=== PATIENT | female | born 1980 | race Caucasian/White ===

== ENCOUNTER 2024-06-08 00:32 | Emergency (ER) | payer OTHER, SELFPAY ==
[2024-06-08 00:40] VITALS: BP 154/75
[2024-06-08 01:00] VITALS: BP 127/81
[2024-06-08] MEDS: NSS 1000 IV (01:35)
[2024-06-08 02:00] VITALS: BP 121/76
[2024-06-08 02:06] LABS: ALT (SGPT) 16 U/L (0-35); AST (SGOT) 22 U/L (14-36); Albumin 4.3 g/dl (3.5-5.0); Alkaline Phosphatase 68 U/L (38-126); Blood Urea Nitrogen 16 mg/dl (7-17); Calcium 9.8 mg/dl (8.4-10.2); Carbon Dioxide 24 mmol/L (22-30); Chloride 104 mmol/L (98-107); Glucose 101 mg/dl (70-99); Potassium 4.1 mmol/L (3.5-5.1); Sodium 144 mmol/L (135-145); Total Bilirubin 0.4 mg/dl (0.2-1.3); Total Protein 7.1 g/dl (6.3-8.2); eGFR > 60.00
[2024-06-08 02:07] LABS: % Basophils 0.8 % (0-2); % Eosinophils 1.3 % (0-6); % Immature Granulocytes 0.4 % (0-0.5); % Lymphocytes 24.6 % (20.5-51.1); % Monocytes 8.7 % (1.7-9.3); % Neutrophils 64.2 % (42.2-75.2); Absolute Basophils 0.1 10^3/uL (0-0.2); Absolute Eosinophils 0.1 10^3/uL (0-0.7); Absolute Lymphocytes 1.9 10^3/uL (1.2-3.4); Absolute Monocytes 0.7 10^3/uL (0.1-0.6); Absolute Neutrophils 4.9 10^3/uL (1.4-6.5); Hematocrit 35.1 % (37.0-47.0); Hemoglobin 11.9 g/dL (12.0-16.0); Mean Corp Hgb Conc. 33.9 g/dL (33.0-37.0); Mean Corpuscular Volume 85.6 fL (81.0-99.0); Nucleated Red Blood Cells % 0 %; Platelet Count 336 10^3/uL (130-400); Red Cell Dist. Width 13.6 % (11.5-14.5); White Blood Cell Count 7.7 10^3/uL (4.8-10.8)
--- NOTE | 2024-06-08 02:16 | ED.GENMED ---
History of Present Illness
General
Chief Complaint: Heart Rate Problem
Time Seen by Provider: 06/08/24 00:34
History of Present Illness
History of Present Illness:
43-year-old female with a history of POTS presenting for concern of tachycardia. Patient reports she was in bed, went up to go to the bathroom and when she got into her bed felt that her heart was racing. She checked her heart rate and it was in
the 170s. Notes that this happened in the past, however was concerned because it was not going down. She reports she currently has a Holter monitor in place, is being evaluated by [facility] for her symptoms. Also notes that she has an
appointment with a POTS specialist in a week at [place]. She is currently not on any medications. Reports that her heart rate has improved since arrival to the hospital. Denies any underlying anxiety. Denies any history of blood clots, recent
travel, recent surgery, exogenous estrogen. Denies chest pain or difficulty breathing. Denies abdominal pain or GI symptoms. Reports that she has been having this issue for the past months, however was diagnosed with POTS syndrome about 15 years
ago. Denies additional medical complaints
Phy Exam
Physical Exam
Physical Exam:
General: Well-appearing, no clinical signs of dehydration, nontoxic and in no acute distress
HEENT: protecting airway
Neck: appears supple
CV: Tachycardic, regular rhythm, no evidence of cyanosis
Resp: No accessory muscle use, no increased work of breathing, lungs clear to auscultation bilaterally
Abd: Soft and non-distended, no tenderness to palpation, normal bowel sounds
Extremities: No deformities, no swelling, no erythema
Neuro: alert, no focal neurologic deficit
: deferred
Rectal: deferred
Psych: Normal affect
Skin: Intact
Course
Orders/Labs/Results
Orders:
Orders
06/08/24 01:17
0.9% Sodium Chloride 1000 ml [Nss] 1,000 ml IV BOLUS
06/08/24 01:34
Complete Blood Count/With Diff Urgent
Comprehensive Metabolic Panel Urgent
TSH Reflex To Free T4 Urgent
Comment: ADD ON
Troponin I Urgent
06/08/24 01:45
Add On- LAB Urgent
Tests Added?: TSH w/ reflex to T4
06/08/24 02:32
Electrocardiogram (*1) Urgent
Reason for Study: Tachycardia
EKG- Treatment ONCE
Abnormal Lab Results
06/08/24
01:34
RBC 4.10 L 10^6/uL
(4.20-5.40)
Hgb 11.9 L g/dL
(12.0-16.0)
Hct 35.1 L %
(37.0-47.0)
Absolute Monos (auto) 0.7 H 10^3/uL
(0.1-0.6)
Glucose 101 H mg/dl
(70-99)
06/08/24 01:34
06/08/24 01:34
Vital Signs
Initial and Last Documented VS:
Initial Vital Signs
Temp Pulse Resp BP Pulse Ox
98.3 F 116 14 154/75 99
06/08/24 00:40 06/08/24 00:40 06/08/24 00:40 06/08/24 00:40 06/08/24 00:40
Last Documented Vital Signs
Temp Pulse Resp BP Pulse Ox
98.3 F 83 15 113/67 96
06/08/24 00:40 06/08/24 04:15 06/08/24 04:15 06/08/24 04:00 06/08/24 04:15
MDM/Problems Addressed
MDM/Problems Addressed:
43-year-old female with history of POTS presenting for elevated heart rate. Vital signs on arrival significant for mild tachycardia.
On exam patient is well-appearing, no acute distress or discomfort. Patient's heart rate resting is in the low 100s. Suspect that her tachycardia is secondary to her known diagnosis of POTS. Lower suspicion for PE in the absence of any rest
symptoms or additional PE risk factors. Patient reports she was recently evaluated for PE in May at a hospital in [place], had a CT of her chest which was negative for acute pathology. Patient without any chest pain, suspicion for ACS or
severe cardiac pathology. Patient is already plugged in the system, currently has a Holter monitor in place, and is post have a stress test later this week. Also rescheduled follow-up with a POTS specialist in 2 weeks. At this time will screen
with laboratory analysis fluids. Will also check TSH and continue to close monitor. Will obtain EKG
03:30 - EKG is sinus rhythm without acute ischemic abnormality, heart rate is controlled. After obtaining EKG, heart rate did increase while patient was at rest, however resolved without intervention.
04:40 - TSH within normal limits. Heart rate remains controlled. At this time feel patient is stable for discharge, however with close interval follow-up. Patient is already plugged in with cardiology, has a stress test next Wednesday and Holter
monitor is to be removed in 3 days. She also had POTS specialist in 2 weeks. Patient expresses concern with periods of elevated heart rate at home. Will prescribe metoprolol for an as needed basis, advised to use of heart rate is greater than 120
or patient is symptomatic. Strict return precautions communicated and patient verbalized understanding
*EKG
Interpreted by ED Provider?: Yes
EKG Intrepretation Date: 06/08/24
EKG Intrepretation Time: 03:44
Interpretation: normal
Comparison EKG: no comparison EKG present
Heart Rate: 90
Rate: normal
Rhythm: sinus
[place]: normal axis
Interval: normal interval
QRS Pattern: normal QRS
Ischemia: no ischemia
*Critical Care Note
Total Time (30-74mins, 75-104mins- exclusive of procedures): Not Applicable
ED Attending Note
-
Portions of this chart may have been created with voice recognition software.� Occasional wrong word or��sound alike� substitutions may have occurred due to the inherent limitations of voice recognition software.
Discharge Plan
Interventions
Interventions:
*Risk Screen - Suicide Last Done: 06/08/24 00:40
*General Assessment Last Done: 06/08/24 01:30
*ED COVID-19 Vaccine History Last Done: 06/08/24 01:30
ED- Cardiac Assessment Last Done: 06/08/24 01:30
ED- Pulmonary Assessment Last Done: 06/08/24 01:30
Discharge Date and Time
Print Language: [place] CITIZEN
[2024-06-08 02:36] LABS: Troponin I < 0.012 ng/ml
[2024-06-08 03:00] VITALS: BP 114/75
[2024-06-08 04:00] VITALS: BP 113/67
[2024-06-08 04:20] LABS: TSH Reflex To Free T4 1.63 uIU/ml (0.47-4.68)
== END 2024-06-08 05:23 | disposition home or self-care (01) ==
LOC: EMR 00:32
PROVIDERS: EMERGENCY PHYSICIAN Student in an Organized Health Care Education/Training Program; FAMILY PHYSICIAN Family Medicine
DX: R00.0 Tachycardia, unspecified (principal); G90.A Postural orthostatic tachycardia syndrome [POTS]
CPT/HCPCS: 99283; 80053; 84443; 84484; 85025; 93005

== ENCOUNTER 2024-06-30 16:15 | Emergency (ER) | payer OTHER, SELFPAY ==
[2024-06-30 16:16] VITALS: BP 129/89
[2024-06-30 16:57] LABS: ALT (SGPT) 18 U/L (0-35); AST (SGOT) 21 U/L (14-36); Albumin 4.9 g/dl (3.5-5.0); Alkaline Phosphatase 65 U/L (38-126); Blood Urea Nitrogen 12 mg/dl (7-17); Calcium 10.3 mg/dl (8.4-10.2); Carbon Dioxide 27 mmol/L (22-30); Chloride 103 mmol/L (98-107); Glucose 108 mg/dl (70-99); Potassium 3.8 mmol/L (3.5-5.1); Sodium 141 mmol/L (135-145); Total Bilirubin 0.5 mg/dl (0.2-1.3); Total Protein 7.9 g/dl (6.3-8.2); eGFR > 60.00
[2024-06-30 17:08] LABS: HCG, Serum Qualitative Screen Negative
[2024-06-30 17:51] LABS: % Basophils 0.6 % (0-2); % Eosinophils 0.3 % (0-6); % Immature Granulocytes 0.4 % (0-0.5); % Lymphocytes 23.8 % (20.5-51.1); % Monocytes 8.8 % (1.7-9.3); % Neutrophils 66.1 % (42.2-75.2); Absolute Lymphocytes 1.7 10^3/uL (1.2-3.4); Absolute Monocytes 0.6 10^3/uL (0.1-0.6); Absolute Neutrophils 4.6 10^3/uL (1.4-6.5); Hematocrit 40.4 % (37.0-47.0); Hemoglobin 13.7 g/dL (12.0-16.0); Mean Corp Hgb Conc. 33.9 g/dL (33.0-37.0); Mean Corpuscular Hgb 29.1 pg (27.0-31.0); Mean Platelet Volume 9.6 fL (7.4-10.4); Nucleated Red Blood Cells % 0 %; Platelet Count 380 10^3/uL (130-400); Red Cell Dist. Width 13.3 % (11.5-14.5); White Blood Cell Count 6.9 10^3/uL (4.8-10.8)
--- NOTE | 2024-06-30 17:54 | EDRN ---
Dr. Coe in room w/pt at this time.
[2024-06-30 18:01] VITALS: BMI 21.5
--- NOTE | 2024-06-30 18:01 | ED.GENMED ---
History of Present Illness
General
Chief Complaint: Dizziness
Time Seen by Provider: 06/30/24 17:41
History of Present Illness
History of Present Illness:
Patient is a 43-year-old woman with history of POTS presenting to the emergency department with episode of dizziness. Patient states that she met with her POTS specialist and had a drive home. She states that she felt fine during the drive home.
She got home was standing around for about 10 minutes and then she looked up to grab something from the top shelf. She had sudden onset of dizziness. She states that she then sat and lay down. The symptoms did slowly get better however when she
moved her neck the symptoms would reappear. She did not notice her heart rate skyrocketed to the 150s. She is unsure if she was anxious. This lasted about 5 to 10 minutes. outreach associate were called as the symptoms were not improving. Upon their arrival
after they moved her to the stretcher she states that symptoms mostly resolved. She did have 1 episode of dizziness when she looked up to the ceiling in the ambulance however since then that has resolved. She has no history of vertigo. She does
state that her ears have been full and she has been having occasional tinnitus. Her children at home have been sick but patient herself has had no URI symptoms. No numbness tingling. No weakness. No headache. No blurry vision.
Phy Exam
Physical Exam
Physical Exam:
GENERAL: in no acute distress
HEENT: normocephalic, extraocular movements intact, moist oral mucosa, middle ear effusions bilaterally with no associated erythema or bulging of the TM
NECK: normal inspection
RESPIRATORY: no respiratory distress, clear to auscultation bilaterally
CARDIOVASCULAR: regular rate and rhythm
ABDOMEN/: soft, non-distended, non-tender to palpation, no rebound or guarding
EXTREMITIES: non-tender, no edema/swelling
NEUROLOGIC: awake and alert, moves all extremities, equal strength in upper and lower extremities, no sensory deficits, normal [id number]
SKIN: warm
Course
Orders/Labs/Results
Orders:
Orders
06/30/24 16:19
Electrocardiogram (*1) Urgent
Reason for Study: Vertigo / Dizzy
06/30/24 16:20
EKG- Treatment ONCE
Test Result ONCE
06/30/24 16:27
Complete Blood Count/With Diff Urgent
Comprehensive Metabolic Panel Urgent
HCG, Serum Qualitative Screen Urgent
Abnormal Lab Results
06/30/24
16:27
Glucose 108 H mg/dl
(70-99)
Calcium 10.3 H mg/dl
(8.4-10.2)
06/30/24 16:27
06/30/24 16:27
Vital Signs
Initial and Last Documented VS:
Initial Vital Signs
Temp Pulse Resp BP Pulse Ox
98.5 F 104 18 129/89 100
06/30/24 16:16 06/30/24 16:16 06/30/24 16:16 06/30/24 16:16 06/30/24 16:16
Last Documented Vital Signs
Temp Pulse Resp BP Pulse Ox
98.5 F 104 18 129/89 100
06/30/24 16:16 06/30/24 16:16 06/30/24 16:16 06/30/24 16:16 06/30/24 16:16
MDM/Problems Addressed
Differential Diagnosis Includes:
Patient is a 43-year-old woman history of POTS presenting to the emergency department episode dizziness that is now resolved. Vitals here initially were notable for heart rate of 104 though during my evaluation her heart rate is in the 80s. Exam
does show middle ear effusions bilaterally and a normal neuroexam. Given the sudden onset of dizziness that was positional likely BPPV however she does have ear effusions which could be contributing to some of the symptoms as well as the tinnitus.
History and exam not consistent with central cause of vertigo. I did educate the patient on how to perform the Lupe maneuver. We did discuss starting meclizine however will hold off at this time. EKG per my interpretation normal sinus rhythm.
Blood work obtained prior to evaluation is unremarkable. test negative. will l discharge at this time.
*Critical Care Note
Total Time (30-74mins, 75-104mins- exclusive of procedures): Not Applicable
ED Attending Note
-
Portions of this chart may have been created with voice recognition software.� Occasional wrong word or��sound alike� substitutions may have occurred due to the inherent limitations of voice recognition software.
Discharge Plan
Departure
Patient Disposition: Home (Routine Discharge)
Date of Disposition: 06/30/24
Time of Disposition: 18:05
Patient with high blood pressure during this ER visit?: No
Discharge Problem:
Vertigo
Instructions: Vertigo (a Type of Dizziness) (DC)
Prescriptions:
No Action
metoprolol tartrate 25 mg tablet
25 mg PO DAILY 30 Days Qty: 30 0RF
Referrals:
Charlette Ordoñez DO [Family Provider] -
Activity Restrictions/Additional Instructions:
You were seen in the Emergency Department today for vertigo. While you were here we performed blood work, which was reassuring. You can try the Lupe maneuver.
We would like for you to follow up with your primary care physician for further evaluation. If you experience fever, worsening of your symptoms, or develop any other new or concerning symptoms, please return to the Emergency Department immediately.
Please see the attached sheet for additional information.
Interventions
Interventions:
*Risk Screen - Suicide Last Done: 06/30/24 18:02
*General Assessment Last Done: 06/30/24 18:02
*Neglect/Abuse Screening Last Done: 06/30/24 18:02
ED- Fall Risk Assessment Last Done: 06/30/24 18:03
*ED COVID-19 Vaccine History Last Done: 06/30/24 18:02
ED- Neurological Assessment Last Done: 06/30/24 18:03
ED Swallowing Screen Last Done: 06/30/24 18:03
Discharge Date and Time
Print Language: KOREAN
[2024-06-30 18:05] VITALS: BP 125/84
== END 2024-06-30 18:20 | disposition home or self-care (01) ==
LOC: EMR 16:15
PROVIDERS: Emergency Medicine; EMERGENCY PHYSICIAN Student in an Organized Health Care Education/Training Program; FAMILY PHYSICIAN Family Medicine
DX: R42 Dizziness and giddiness (principal); G90.A Postural orthostatic tachycardia syndrome [POTS]
CPT/HCPCS: 99283; 80053; 84703; 85025; 93005

== ENCOUNTER 2024-07-31 04:42 | Emergency (ER) | payer OTHER, SELFPAY ==
[2024-07-31] VITALS (8 sets, daily range): BP systolic 87–134; BP diastolic 71–84; BMI 21.5
[2024-07-31 05:27] LABS: % Basophils 0.5 % (0-2); % Eosinophils 1.7 % (0-6); % Immature Granulocytes 0.3 % (0-0.5); % Lymphocytes 35.3 % (20.5-51.1); % Monocytes 10.3 % (1.7-9.3); % Neutrophils 51.9 % (42.2-75.2); Absolute Eosinophils 0.1 10^3/uL (0-0.7); Absolute Lymphocytes 2.1 10^3/uL (1.2-3.4); Absolute Monocytes 0.6 10^3/uL (0.1-0.6); Absolute Neutrophils 3.1 10^3/uL (1.4-6.5); Hematocrit 36.2 % (37.0-47.0); Hemoglobin 12.1 g/dL (12.0-16.0); Mean Corp Hgb Conc. 33.4 g/dL (33.0-37.0); Mean Corpuscular Hgb 28.1 pg (27.0-31.0); Mean Platelet Volume 8.9 fL (7.4-10.4); Nucleated Red Blood Cells % 0 %; Platelet Count 316 10^3/uL (130-400); Red Blood Cell Count 4.31 10^6/uL (4.20-5.40); Red Cell Dist. Width 13.2 % (11.5-14.5)
[2024-07-31 05:30] LABS: HCG, Serum Qualitative Screen Negative
[2024-07-31 05:33] LABS: ALT (SGPT) 17 U/L (0-35); AST (SGOT) 19 U/L (14-36); Albumin 4.6 g/dl (3.5-5.0); Alkaline Phosphatase 57 U/L (38-126); Blood Urea Nitrogen 12 mg/dl (7-17); Carbon Dioxide 24 mmol/L (22-30); Chloride 103 mmol/L (98-107); Estimated Creatinine Clearance 86 ml/min; Glucose 95 mg/dl (70-99); Potassium 3.8 mmol/L (3.5-5.1); Sodium 139 mmol/L (135-145); Total Bilirubin 0.4 mg/dl (0.2-1.3); Total Protein 7.4 g/dl (6.3-8.2); eGFR > 60.00
[2024-07-31 05:59] LABS: Troponin I < 0.012 ng/ml
--- NOTE | 2024-07-31 06:10 | EDRN ---
Addendum entered by Netta Louis RN 07/31/24 06:39:
Rhythm strip from 0610 event from central monitoring printed and placed in pt.'s chart.
Original Note:
At approximately 0610 AM, pt.'s HR increased to 141 for less than a minute, sinus tach, then HR steadily decreased until HR in NSR w/ rate of 98.
--- NOTE | 2024-07-31 06:41 | ED.GENMED ---
History of Present Illness
<Julianna Howell MD, Resident - Last Filed: 07/31/24 08:48>
General
Chief Complaint: Heart Rate Problem
Source: patient
Exam Limitations: none
Time Seen by Provider: 07/31/24 06:15
Travel History
Have you traveled to any high risk areas for coronavirus over the past 14 days?: No
Have you had any contact with someone who has COVID-19?: No
Do you have any symptoms of coronavirus? Fever > 100 degrees, chills, cough, shortness of breath, sore throat, loss of taste or smell, muscle aches, or headache?: No
History of Present Illness
History of Present Illness:
43-year-old female with past medical history significant for subclinical hypothyroidism, migraines, POTS, presents to the hospital after awakening from sleep at about 4 AM with palpitations, her heart rate went up to high 190s making her feel mildly
lightheaded and she called EMS. Upon EMS arrival her heart rate was in 150s. She lost over 10 pounds of weight over the last 2 weeks, her appetite has been on and off, her soft palate tongue and throat are swollen, and was wondering if her B panel
is low, and has iron deficiency. She has difficulties swallowing both solids and liquids, and was diagnosed with subclinical hypothyroidism. She is also on iron supplements, which makes her stools look black and occasionally constipated. With
this episode she denies having headaches, blurring of vision, chest pain, shortness of breath on exertion, swelling of feet, orthopnea, PND, change in bladder habits.
She denies any fevers, chills, recent history of travel or exposure to sick contacts.
Review of Systems
<Julianna Howell MD, Resident - Last Filed: 07/31/24 08:48>
Review of Systems
Constitutional: Reports weight loss, fatigue and sleep disturbance
EENT: Reports mouth swelling
Respiratory: Reports no symptoms
Cardiac: Reports palpitations and other (Lightheadedness)
ABD/GI: Reports no symptoms
: Reports no symptoms
Musculoskeletal: Reports no symptoms; Denies muscle stiffness, neck pain or back pain
Skin: Reports no symptoms
Neurological: Reports dizzy
Endocrine: Denies no symptoms
Hematologic/Lymphatic: Denies no symptoms
Psychiatric: Reports anxiety
Phy Exam
<Julianna Howell MD, Resident - Last Filed: 07/31/24 08:48>
General Physical Exam
General Presentation: well appearing and no apparent distress
General Skin: warm
General Habitus: normal
General Mental: alert
General Hydration: appears well hydrated
ENT Exam
ENT Exam: EOMI, pharynx normal and neck supple
Eye Exam
Eye Exam: PERRL and EOMI
Cardiovascular Exam
Cardiovascular Exam: regular rate/rhythm, no edema, no gallop, no JVD, no murmur, normal peripheral pulses and tachycardia
Heart Sounds: normal
RONALDO Score
Is patient's age greater than or equal to 65 years: No
Does patient have 3 or more CAD risk factors?: No
Does patient have known CAD: No
Has patient used ASA in past seven days?: No
Has patient had severe angina in past 24 hrs?: No
Are patient's cardiac markers elevated?: No
Are there ST changes greater 0.05mm?: No
Result score?: 0
Pulmonary Exam
Pulmonary Exam: lungs clear, no respiratory distress, no rales, no crackles and no rhonchi
Gastrointestinal Exam
Gastrointestinal Exam: normal bowel sounds, non tender, soft, no pulsatile mass and non distended
Neurological Exam
Neurological Exam: alert, no motor deficits and no sensory deficits
Musculoskeletal Exam
Musculoskeletal Exam: edema
Skin Exam
Skin Exam: normal color
Psychiatric Exam
Psychiatric Exam: normal mood/affect
<Woody Rangel, DO - Last Filed: 07/31/24 13:46>
RONALDO Score
Result score?: 0
Course
<Julianna Howell MD, Resident - Last Filed: 07/31/24 08:48>
Orders/Labs/Results
Orders:
Orders
07/31/24 04:47
Electrocardiogram (*1) Urgent
Reason for Study: Chest Pain
Cardiac Monitoring- Treatment ONCE
EKG- Treatment ONCE
IV Insert/Care/Rem.- Treatment PRN
O2 Therapy [RESP] Urgent
Titrate/Wean O2 to maintain O2 sat greater than (%): 90
Special Instructions: Maintain sats >/=90%
Pulse Ox/spot Check [RESP] Urgent
Quantity: 1
Special Instructions: ON ROOM AIR
07/31/24 05:08
Complete Blood Count/With Diff Urgent
Comprehensive Metabolic Panel Urgent
Folate Urgent
Comment: ADD ON
HCG, Serum Qualitative Screen Urgent
TSH Reflex To Free T4 Urgent
Comment: ADD ON
Troponin I Urgent
Vitamin B12 Urgent
Comment: ADD ON
07/31/24 05:14
Add On- LAB Urgent
Tests Added?: serum hcg
07/31/24 06:37
Add On- LAB Urgent
Tests Added?: Vitamin B12, folate and TSH levels
07/31/24 07:15
Propranolol [Inderal] 20 mg PO NOW STA
07/31/24 07:34
Propranolol [Inderal] 5 mg PO NOW STA
Abnormal Lab Results
07/31/24
05:08
Hct 36.2 L %
(37.0-47.0)
Monocytes % 10.3 H %
(1.7-9.3)
07/31/24 05:08
07/31/24 05:08
Vital Signs
Initial and Last Documented VS:
Initial Vital Signs
Pulse Resp BP Pulse Ox
101 13 121/72 99
07/31/24 04:46 07/31/24 04:46 07/31/24 04:46 07/31/24 04:46
Last Documented Vital Signs
Temp Pulse Resp BP Pulse Ox
98.2 F 99 16 122/80 99
07/31/24 07:31 07/31/24 08:45 07/31/24 08:45 07/31/24 08:00 07/31/24 08:45
<Woody Rangel, DO - Last Filed: 07/31/24 13:46>
Orders/Labs/Results
Orders:
Orders
07/31/24 04:47
Electrocardiogram (*1) Urgent
Reason for Study: Chest Pain
Cardiac Monitoring- Treatment ONCE
EKG- Treatment ONCE
IV Insert/Care/Rem.- Treatment PRN
O2 Therapy [RESP] Urgent
Titrate/Wean O2 to maintain O2 sat greater than (%): 90
Special Instructions: Maintain sats >/=90%
Pulse Ox/spot Check [RESP] Urgent
Quantity: 1
Special Instructions: ON ROOM AIR
07/31/24 05:08
Complete Blood Count/With Diff Urgent
Comprehensive Metabolic Panel Urgent
Folate Urgent
Comment: ADD ON
HCG, Serum Qualitative Screen Urgent
TSH Reflex To Free T4 Urgent
Comment: ADD ON
Troponin I Urgent
Vitamin B12 Urgent
Comment: ADD ON
07/31/24 05:14
Add On- LAB Urgent
Tests Added?: serum hcg
07/31/24 06:37
Add On- LAB Urgent
Tests Added?: Vitamin B12, folate and TSH levels
07/31/24 07:15
Propranolol [Inderal] 20 mg PO NOW STA
07/31/24 07:34
Propranolol [Inderal] 5 mg PO NOW STA
Abnormal Lab Results
07/31/24
05:08
Hct 36.2 L %
(37.0-47.0)
Monocytes % 10.3 H %
(1.7-9.3)
07/31/24 05:08
07/31/24 05:08
Vital Signs
Initial and Last Documented VS:
Initial Vital Signs
Pulse Resp BP Pulse Ox
101 13 121/72 99
07/31/24 04:46 07/31/24 04:46 07/31/24 04:46 07/31/24 04:46
Last Documented Vital Signs
Temp Pulse Resp BP Pulse Ox
98.2 F 99 16 122/80 99
07/31/24 07:31 07/31/24 08:45 07/31/24 08:45 07/31/24 08:00 07/31/24 08:45
<Julianna Howell MD, Resident - Last Filed: 07/31/24 08:48>
MDM/Problems Addressed
Differential Diagnosis Includes:
POTS versus dehydration versus tachyarrhythmias
MDM/Problems Addressed:
POTS
<Julianna Howell MD, Resident - Last Filed: 07/31/24 08:48>
*Radiology
Radiology exam reviewed: preliminary read by ED provider
*Pulse Oximetry
Patient hypoxic: no
*EKG
Interpreted by ED Provider?: Yes
EKG Intrepretation Date: 07/31/24
EKG Intrepretation Time: 05:00
Interpretation: normal
Comparison EKG: changes noted
Rate: tachycardiac
Rhythm: sinus
[place]: normal axis
Interval: normal QT interval and normal [place] interval
QRS Pattern: normal QRS
Ischemia: no ischemia
*Asthma Educator Interpretation
Rate: tachycardiac
Interpretation: abnormal
Rhythm: sinus
*Critical Care Note
Total Time (30-74mins, 75-104mins- exclusive of procedures): Not Applicable
<Julianna Howell MD, Resident - Last Filed: 07/31/24 08:48>
Update Note
Update Note:
Patient was given 5 mg of propranolol. Patient is doing much better with symptom control after taking propranolol.
Discussed preventative measures for POTS-staying well-hydrated, adequate anxiety control, cognitive behavioral therapy, and a follow-up with primary care.
ED Attending Note
<Julianna Howell MD, Resident - Last Filed: 07/31/24 08:48>
-
Portions of this chart may have been created with voice recognition software.� Occasional wrong word or��sound alike� substitutions may have occurred due to the inherent limitations of voice recognition software.
<Woody Rangel, DO - Last Filed: 07/31/24 13:46>
ED Attending Note
Patient seen and examined by attending physician: Yes
I performed a history and physical exam of patient and discussed management with resident, I reviewed resident's note and agree with documented findings and plan of care.: Yes
ED Attending Note:
I have reviewed and agree with history and treatment plan by Julianna Howell MD. My exam revealed
Physical Exam
General: no apparent distress, not acutely ill
Neck: supple. no meningeal signs. normal posterior pharynx
Heart: s1/s2 regular rate and rhythm, no murmur. equal radial
pulses.
HEENT: Pupils equal round reactive to light, EOMI
Lungs: no acute respiratory distress. clear bilaterally
Abdomen: normal bowel sounds. not tender. no CVAT
Neuro: alert and oriented. no focal neurological deficits cranial nerves II through XII intact
Skin: no rash
Psychiatric: well kept. interactive and cooperative
Extremities: no edema. no calf tenderness. negative homans. good distal pulses
43-year-old female with POTS. Tachycardia improved. Patient stable for discharge
Discharge Plan
Departure
Patient Disposition: Home (Routine Discharge)
Date of Disposition: 07/31/24
Time of Disposition: 08:45
Patient with high blood pressure during this ER visit?: No
Condition: Good
Discharge Problem:
Postural orthostatic tachycardia syndrome [POTS]
Instructions: Palpitations (DC)
Prescriptions:
No Action
omeprazole 40 mg Capsule,Delayed Release(Dr/Ec)
40 mg PO DAILY
Referrals:
Rao Blount DO [Family Provider] -
Activity Restrictions/Additional Instructions:
Adequate sleep, hydration, anxiety and stress management will help control POTS symptoms
Start taking low-dose beta-blockers as prescribed by your city plant supervisor.
Follow-up with your primary care physician in 2 weeks.
Interventions
Interventions:
*Risk Screen - Suicide Last Done: 07/31/24 04:51
*General Assessment Last Done: 07/31/24 04:51
*Neglect/Abuse Screening Last Done: 07/31/24 04:51
ED- Fall Risk Assessment Last Done: 07/31/24 04:51
*ED COVID-19 Vaccine History Last Done: 07/31/24 04:51
*Nursing Disposition Last Done: 07/31/24 09:23
ED- Cardiac Assessment Last Done: 07/31/24 05:14
ED- Pulmonary Assessment Last Done: 07/31/24 05:14
Discharge Date and Time
Discharge Date/Time: 07/31/24 09:23
Print Language: IRISH
[2024-07-31] MEDS: INDERAL 5 MG PO (07:49)
[2024-07-31 08:13] LABS: TSH Reflex To Free T4 1.37 uIU/ml (0.47-4.68)
[2024-07-31 08:49] LABS: Folate 17.8 ng/ml (2.76-20); Vitamin B12 329 pg/ml (239-931)
== END 2024-07-31 09:23 | disposition home or self-care (01) ==
LOC: EMR 04:42
PROVIDERS: Emergency Medicine; EMERGENCY PHYSICIAN Emergency Medicine; FAMILY PHYSICIAN Internal Medicine
DX: G90.A Postural orthostatic tachycardia syndrome [POTS] (principal); E03.8 Other specified hypothyroidism
CPT/HCPCS: 99284; 80053; 82607; 82746; 84443; 84484; 84703; 85025; 93005